=== PATIENT | male | born 1965 | race Caucasian/White ===

== ENCOUNTER 2021-07-04 18:26 | Inpatient (IN) ==
[2021-07-04 19:11] LABS: Basophils # (auto) 0.05 K/uL (0-0.2); Basophils % (auto) 0.7 %; Eosinophils # (auto) 0.26 K/uL (0-0.5); Eosinophils % (auto) 3.7 %; Hematocrit (blood only) 45.5 % (42-52); Hemoglobin 15.2 g/dL (14.0-18.0); Immature Granulocytes # (auto) 0.01 K/uL (0.00-0.02); Immature Granulocytes % (auto) 0.1 %; Lymphocytes # (auto) 2.06 K/uL (1.2-3.4); Lymphocytes % (auto) 29.6 %; Mean Corpuscular Hemoglobin 31.7 pg (25-34); Mean Corpuscular Hgb Conc 33.4 g/dL (32-36); Mean Platelet Volume 10.3 fL (7.4-10.4); Monocytes # (auto) 0.73 K/uL (0.11-0.59); Monocytes % (auto) 10.5 %; Neutrophils # (auto) 3.84 K/uL (1.4-6.5); Neutrophils % (auto) 55.4 %; Platelet Count 212 K/uL (130-400); RDW Coefficient of Variation 12.8 % (11.5-14.5); RDW Standard Deviation 44.4 fL (36.4-46.3); Red Blood Count 4.79 M/uL (4.7-6.1); White Blood Count 6.95 K/uL (4.8-10.8)
[2021-07-04] MEDS ORDERED: OPTIRAY 320 125ml IV ONE (19:25)
--- NOTE | 2021-07-04 19:25 | Emergency Department Note ---
History of Present Illness General Chief complaint: Eye Problems Stated complaint: TUNNEL VISION, LOSS OF PERIPHERAL Time Seen by Provider: 07/04/21 19:04 History of Present Illness Maximum Pain Intensity: 8 55-year-old male presents to the ED with a chief complaint of loss of vision on the lateral aspect of his left eye. The patient states that his symptoms started around 9 AM when he awoke and he was looking at a Keyboard and states that he could not see the one portion of the keyboard when looking at the other portion. He also felt a little lightheaded. While at work today, he states that his vision is felt a little off. He saw an music box mechanic this evening and had confrontational exam as well as a dilation exam. Nothing abnormal was seen on the anatomic exam however the confrontational exam showed a loss of his lateral vision in the left eye and medial vision in the right eye. The patient was sent here for further evaluation. The patient does report a headache in the right side of his head. Denies any other complaints. No trauma. No other focal complaints. Home Medications Medication Instructions Recorded Confirmed Type rosuvastatin 10 mg tablet (Crestor) 10 mg PO DAILY #90 tab 04/05/21 07/04/21 Rx fluticasone propionate 50 2 spray INTRANASAL DAILY 07/04/21 07/04/21 History mcg/actuation nasal spray,suspension ibuprofen 200 mg tablet 200 mg PO Q6H PRN 07/04/21 07/04/21 History opgdslyh-omk-wfhez acid 300 1 tab PO DAILY 07/04/21 07/04/21 History mcg-lycopene 600 mcg-lutein 300 mcg tablet (Centrum Silver Men) Allergies Allergy/AdvReac Type Severity Reaction Status Date / Time No Known Allergies Allergy Verified 07/04/21 19:56 Past Med/Surg History Medical History Herpes zoster Hyperlipidemia Surgical History S/P colonoscopic polypectomy Status post right knee surgery Family History Other Adopted Family history unknown Social History Smoking Status: Never smoker Second Hand Exposure: No; Hx Alcohol Use: Yes (3 times weekly ) Alcohol type: beer Hx Substance Use: No Preferred Language: Yoruba Communication Ability: Effective marital status: Current Living Situation: Spouse current occupational status: employed 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 [employer] Feels Safe at Home: Yes Childhood Exposure to Second-Hand Smoke: Yes Dental Care, Regularly: Yes Physical Activity Frequency: 3-4 Times per Week Seatbelt Use: always Sunscreen Use: Yes Review of Systems A total of 10 systems reviewed and were otherwise negative Physical Exam Vital Signs Vital Signs - 24 hr 07/04/21 18:41 07/04/21 19:12 Temperature 36.9 C Temperature Source Temporal Artery Scan Pulse Rate 78 Pulse Rate [Apical] 71 Pulse Rhythm Regular Pulse Rhythm [Apical] Regular Pulse Strength Normal Respiratory Rate 20 18 Respiratory Effort / Characteristics Non-Labored Spontaneous Non-Labored Respiratory Depth Normal Normal Respiratory Pattern Regular Blood Pressure 160/115 H Blood Pressure [Left Arm] 143/101 H Blood Pressure Mean 130 Blood Pressure Mean [Left Arm] 115 Blood Pressure Position Sitting Pulse Oximetry 97 99 Oxygen Delivery Method Room Air Room Air Sepsis Recent Fever Within 48 Hours No Sepsis New/Unexplained Change in Mental Status N/A Sepsis Action Taken by Nursing No Action Required CONSTITUTIONAL/VITAL SIGNS: Reviewed / noted above. GENERAL: Non-toxic in appearance. INTEGUMENTARY: Warm, dry, and [place]. HEAD: Normocephalic. EYES: without scleral icterus or trauma. ENT/OROPHARYNX: clear and moist. LYMPHADENOPATHY/NECK: Is supple without lymphadenopathy or meningismus. RESPIRATORY: Clear to auscultation bilaterally. No increased work of breathing. CARDIOVASCULAR: Regular rate and rhythm. GI/ABDOMEN: Soft and nontender. No organomegaly or pulsatile mass. EXTREMITIES: Warm and well perfused. BACK: No CVA tenderness. NEUROLOGICAL: Intact without focal deficits. No focal motor deficits. Confrontational exam did not reveal any obvious abnormalities on my exam. Normal speech. No facial droops. PSYCHIATRIC: normal affect. MUSCULOSKELETAL: Normally developed with good muscle tone. TRIAGE NURSING DOCUMENTATION REVIEWED. Course Administered Medications Discontinued Medications Aspirin (Aspirin Chew 324 Mg) 324 mg PO NOW STA Stop: 07/04/21 20:09 Last Admin: 07/04/21 20:17 Dose: 324 mg Documented by: [id number] Ioversol (Optiray 320 125ml) 117 ml IV ONCE ONE Stop: 07/04/21 19:26 Last Admin: 07/04/21 19:26 Dose: 117 ml Documented by: [id number] Medical Decision Making Differential Diagnosis Differential includes acute coronary syndrome, myocardial infarction, CVA, TIA, anemia, infection, pneumonia, UTI, pyelonephritis, poor nutrition, dehydration, electrolyte disturbance,hypoglycemia. Medical Records Attestation: I reviewed the patient's medical records. Home Medications Current Medication List: was personally reviewed by me Laboratory Data Attestation: I reviewed the patient's lab results. Result diagrams: 07/04/21 18:54 07/04/21 18:54 Lab Results 07/04/21 07/04/21 07/04/21 Range/Units 18:54 18:54 18:54 WBC 6.95 (4.8-10.8) K/uL RBC 4.79 (4.7-6.1) M/uL Hgb 15.2 (14.0-18.0) g/dL Hct 45.5 (42-52) % MCV 95.0 (80-100) fL MCH 31.7 (25-34) pg MCHC 33.4 (32-36) g/dL RDW Std Deviation 44.4 (36.4-46.3) fL RDW Coeff of [place] 12.8 (11.5-14.5) % Plt Count 212 (130-400) K/uL MPV 10.3 (7.4-10.4) fL Immature Gran % (Auto) 0.1 % Neut % (Auto) 55.4 % Lymph % (Auto) 29.6 % [place] % (Auto) 10.5 % Eos % (Auto) 3.7 % Baso % (Auto) 0.7 % Neut # (Auto) 3.84 (1.4-6.5) K/uL Lymph # (Auto) 2.06 (1.2-3.4) K/uL [place] # (Auto) 0.73 H (0.11-0.59) K/uL Eos # (Auto) 0.26 (0-0.5) K/uL Baso # (Auto) 0.05 (0-0.2) K/uL Immature Gran # (Auto) 0.01 (0.00-0.02) K/uL PT 10.3 (9.0-12.0) Seconds INR 1.0 (0.9-1.1) APTT 24.3 (21.0-31.0) Seconds PTT Ratio 0.9 Sodium 143 (136-145) mmol/L Potassium 3.6 (3.5-5.1) mmol/L Chloride 110 H (98-107) mmol/L Carbon Dioxide 26 (21-32) mmol/L Anion Gap 7.0 (3-11) BUN 17 (7-18) mg/dl Creatinine 1.06 (0.6-1.4) mg/dl Est Cr Clr Drug Dosing 92.6 ml/min Est GFR ( Amer) 91.8 ml/min Est GFR (Non-Af Amer) 79.2 ml/min BUN/Creatinine Ratio 15.6 (10-20) Glucose 100 H (70-99) mg/dl POC Glucose (70-99) mg/dl Calcium 9.0 (8.5-10.1) mg/dl Magnesium 2.5 H (1.8-2.4) mg/dl Total Bilirubin 0.6 (0.2-1) mg/dl AST 19 (15-37) U/L ALT 28 (12-78) U/L Alkaline Phosphatase 44 L (45-117) U/L Troponin I < 0.015 (0-0.045) ng/ml Total Protein 7.4 (6.4-8.2) gm/dl Albumin 4.1 (3.4-5.0) gm/dl Globulin 3.3 (2.5-4.0) gm/dl Albumin/Globulin Ratio 1.3 (0.9-2) 07/04/21 Range/Units 19:21 WBC (4.8-10.8) K/uL RBC (4.7-6.1) M/uL Hgb (14.0-18.0) g/dL Hct (42-52) % MCV (80-100) fL MCH (25-34) pg MCHC (32-36) g/dL RDW Std Deviation (36.4-46.3) fL RDW Coeff of Destini (11.5-14.5) % Plt Count (130-400) K/uL MPV (7.4-10.4) fL Immature Gran % (Auto) % Neut % (Auto) % Lymph % (Auto) % [place] % (Auto) % Eos % (Auto) % Baso % (Auto) % Neut # (Auto) (1.4-6.5) K/uL Lymph # (Auto) (1.2-3.4) K/uL [place] # (Auto) (0.11-0.59) K/uL Eos # (Auto) (0-0.5) K/uL Baso # (Auto) (0-0.2) K/uL Immature Gran # (Auto) (0.00-0.02) K/uL PT (9.0-12.0) Seconds INR (0.9-1.1) APTT (21.0-31.0) Seconds PTT Ratio Sodium (136-145) mmol/L Potassium (3.5-5.1) mmol/L Chloride (98-107) mmol/L Carbon Dioxide (21-32) mmol/L Anion Gap (3-11) BUN (7-18) mg/dl Creatinine (0.6-1.4) mg/dl Est Cr Clr Drug Dosing ml/min Est GFR ( Amer) ml/min Est GFR (Non-Af Amer) ml/min BUN/Creatinine Ratio (10-20) Glucose (70-99) mg/dl POC Glucose 99 (70-99) mg/dl Calcium (8.5-10.1) mg/dl Magnesium (1.8-2.4) mg/dl Total Bilirubin (0.2-1) mg/dl AST (15-37) U/L ALT (12-78) U/L Alkaline Phosphatase (45-117) U/L Troponin I (0-0.045) ng/ml Total Protein (6.4-8.2) gm/dl Albumin (3.4-5.0) gm/dl Globulin (2.5-4.0) gm/dl Albumin/Globulin Ratio (0.9-2) Imaging Data Radiologist's Impression: Head CT 07/04/21 18:59 CT OF THE HEAD WITHOUT CONTRAST CLINICAL HISTORY: Stroke Like Symptoms COMPARISON STUDY: No previous studies for comparison. TECHNIQUE: Helical axial images of the head were obtained without IV contrast. Automated exposure control was utilized for the study. A dose lowering technique was utilized adhering to the principles of ALARA. FINDINGS: No acute intracranial hemorrhage, midline shift or mass effect is present. The ventricular system is unremarkable. Basal cisterns are patent. There are no extra axial collections. Note is made of a 6.4 x 3.6 cm hypodense focus with loss of villa-white differentiation within the right occipital lobe. There are no significant calvarial abnormalities. IMPRESSION: 6.4 x 3.6 cm hypodense focus with loss of villa-white differentiation within the right occipital lobe consistent with an acute right WHEEL PRESS CLERK territory infarct. No significant mass effect. No hemorrhage. Findings discussed with Dr. Velasco at time of dictation. ACT 112: Negative or not required by law. Electronically signed by: Brenden Rice M.D. 07/04/2021 7:48 PM Head CTA 07/04/21 18:59 CTA ANGIOGRAPHY OF THE HEAD CLINICAL HISTORY: Stroke Like Symptoms COMPARISON STUDY: No previous studies for comparison. TECHNIQUE: Helical axial images of the head were obtained following uneventful intravenous administration of 117 cc of Optiray. Sagittal and coronal reconstructions were viewed as well as maximal intensity projections on an independent 3-D workstation. Automated exposure control was utilized for the study. A dose lowering technique was utilized adhering to the principles of ALARA. CT DOSE: 1173.73 mGy.cm FINDINGS: Please note that the head CT will be reported separately. Hypodensity within the right occipital lobe is better depicted on that exam. The bilateral M1, M2, A1 and A2 segments are patent. There is no intracranial aneurysm. No central vessel occlusion is noted. The basilar artery is patent. The left posterior cerebral artery is patent. The right posterior cerebral artery is 33not occluded however there is moderate asymmetric narrowing and irregularity of the mid to distal right posterior cerebral artery. IMPRESSION: 1. No central vessel occlusion. Asymmetric moderate narrowing and irregularity of the right posterior cerebral artery. 2. Acute infarct within the right WHEEL PRESS CLERK territory better depicted on noncontrast head CT which will be reported separately. ACT 112: Negative or not required by law. Electronically signed by: Brenden Rice M.D. 07/04/2021 8:01 PM Neck CTA 07/04/21 18:59 CT ANGIOGRAPHY OF THE NECK WITH CONTRAST CLINICAL HISTORY: Stroke Like Symptoms COMPARISON STUDY: No previous studies for comparison. Technique: CT angiography of the carotid and vertebral arteries was obtained using Optiray and 3D reconstruction on an independent workstation. NASCET criteria was utilized. Automated exposure control was utilized for the study. A dose lowering technique was utilized adhering to the principles of ALARA. Findings: Lung apices are clear. There is no cervical lymphadenopathy. No acute cervical spine fracture is noted. Multilevel degenerative changes within the cervical spine are present. The bilateral common carotid, cervical internal carotid and vertebral arteries are patent. There is no stenosis within these vessels. No significant plaque is noted. There is no dissection. No aneurysm within the neck is noted. CTA of the head will be reported separately. IMPRESSION: Unremarkable CTA of the neck. No stenosis. No dissection. ACT 112: Negative or not required by law. Electronically signed by: Brenden Rice M.D. 07/04/2021 7:57 PM ECG Data Attestation: I personally reviewed and interpreted this ECG as follows: Additional Comments: Twelve-lead EKG: Per my interpretation shows a sinus rhythm at a rate of 65. No ST elevation. No PVCs. Normal QTC. MDM Narrative Patient presents with left-sided hemianopsia. This was diagnosed at the music box mechanic office. He was concerned about a lesion in the right occipital lobe. Patient otherwise is in no distress. Vital signs stable. No focal deficits. On my gross confrontational exam, no gross abnormalities noted. The patient's blood work was unremarkable. EKG shows a sinus rhythm. CT scan of the brain shows findings suggesting a right WHEEL PRESS CLERK territory infarct causing a right occipital infarct. I did speak with [place] neurolog[facility], Dr. Holbrook, who recommended a full dose aspirin now followed by inpatient work-up here. No additional intervention was recommended. The patient will be seen by the hospitalist service. Impression & Plan Acute CVA (cerebrovascular accident) Discharge Plan Visit Data Chief Complaint: Eye Problems Stated Complaint: TUNNEL VISION, LOSS OF PERIPHERAL ED Provider: Luciano Velasco Discharge Problem: Acute CVA (cerebrovascular accident) Patient Disposition: Being Evaluated by Hospitalist Forms Stand Alone Forms: My [facility] Prescriptions Prescriptions: No Action rosuvastatin [Crestor] 10 mg tablet 10 mg PO DAILY Qty: 90 RF: 3 ibuprofen 200 mg Tablet 200 mg PO Q6H PRN (Reason: Pain) RF: 0 Centrum Silver Men 300-600-300 mcg Tablet 1 tab PO DAILY RF: 0 fluticasone propionate [Flonase] 50 mcg/actuation [place],Suspension 2 spray INTRANASAL DAILY RF: 0 Referrals Referrals: Dionicio Pizano MD [Primary Care Provider] -
[2021-07-04 19:28] LABS: Alanine Aminotransferase 28 U/L (12-78); Albumin Level 4.1 gm/dl (3.4-5.0); Aspartate Aminotransferase 19 U/L (15-37); BUN Creatinine Ratio 15.6 (10-20); Blood Urea Nitrogen 17 mg/dl (7-18); Carbon Dioxide 26 mmol/L (21-32); Chloride 110 mmol/L (98-107); Creatinine Clr Calc Pharmacy 92.6 ml/min; Est GFR (African American) 91.8 ml/min; Est GFR (Non-African American) 79.2 ml/min; Glucose 100 mg/dl (70-99); Magnesium 2.5 mg/dl (1.8-2.4); Potassium 3.6 mmol/L (3.5-5.1); Sodium 143 mmol/L (136-145)
[2021-07-04 19:33] LABS: Albumin Globulin Ratio 1.3 (0.9-2); Alkaline Phosphatase 44 U/L (45-117); Bilirubin,Total 0.6 mg/dl (0.2-1); Globulin 3.3 gm/dl (2.5-4.0); Total Protein 7.4 gm/dl (6.4-8.2); Troponin I < 0.015 ng/ml (0-0.045)
[2021-07-04 19:44] LABS: Partial Thromboplastin Ratio 0.9; Partial Thromboplastin Time 24.3 Seconds (21.0-31.0); Prothrombin Time 10.3 Seconds (9.0-12.0)
--- NOTE | 2021-07-04 19:50 | CT Scan Report ---
CT OF THE HEAD WITHOUT CONTRAST CLINICAL HISTORY: Stroke Like Symptoms COMPARISON STUDY: No previous studies for comparison. TECHNIQUE: Helical axial images of the head were obtained without IV contrast. Automated exposure con trol was utilized for the study. A dose lowering technique was utilized adhering to the principles o f ALARA. FINDINGS: No acute intracranial hemorrhage, midline shift or mass effect is present. The ventricular system is unremarkable. Basal cisterns are patent. There are no extra axial collections. Note is made of a 6.4 x 3.6 cm hypodense focus with loss of villa-white differentiation within the right occipital lobe. There are no significant calvarial abnormalities. IMPRESSION: 6.4 x 3.6 cm hypodense focus with loss of villa-white differentiation within the right oc cipital lobe consistent with an acute right MANAGER FIELD territory infarct. No significant mass effect. No hem orrhage. Findings discussed with Dr. Velasco at time of dictation. ACT 112: Negative or not required by law. Electronically signed by: Brenden Rice M.D. 07/04/2021 7:48 PM
--- NOTE | 2021-07-04 19:58 | CT Scan Report ---
CT ANGIOGRAPHY OF THE NECK WITH CONTRAST CLINICAL HISTORY: Stroke Like Symptoms COMPARISON STUDY: No previous studies for comparison. Technique: CT angiography of the carotid and vertebral arteries was obtained using Optiray and 3D rec onstruction on an independent workstation. NASCET criteria was utilized. Automated exposure control was utilized for the study. A dose lowering technique was utilized adhering to the principles of ALA RA. Findings: Lung apices are clear. There is no cervical lymphadenopathy. No acute cervical spine fractu re is noted. Multilevel degenerative changes within the cervical spine are present. The bilateral com mon carotid, cervical internal carotid and vertebral arteries are patent. There is no stenosis within these vessels. No significant plaque is noted. There is no dissection. No aneurysm within the neck i s noted. CTA of the head will be reported separately. IMPRESSION: Unremarkable CTA of the neck. No stenosis. No dissection. ACT 112: Negative or not required by law. Electronically signed by: Brenden Rice M.D. 07/04/2021 7:57 PM
--- NOTE | 2021-07-04 20:03 | CT Scan Report ---
CTA ANGIOGRAPHY OF THE HEAD CLINICAL HISTORY: Stroke Like Symptoms COMPARISON STUDY: No previous studies for comparison. TECHNIQUE: Helical axial images of the head were obtained following uneventful intravenous administr ation of 117 cc of Optiray. Sagittal and coronal reconstructions were viewed as well as maximal inten sity projections on an independent 3-D workstation. Automated exposure control was utilized for the study. A dose lowering technique was utilized adhering to the principles of ALARA. CT DOSE: 1173.73 mGy.cm FINDINGS: Please note that the head CT will be reported separately. Hypodensity within the right occi pital lobe is better depicted on that exam. The bilateral M1, M2, A1 and A2 segments are patent. Ther e is no intracranial aneurysm. No central vessel occlusion is noted. The basilar artery is patent. Th e left posterior cerebral artery is patent. The right posterior cerebral artery is 33not occluded how ever there is moderate asymmetric narrowing and irregularity of the mid to distal right posterior cer ebral artery. IMPRESSION: 1. No central vessel occlusion. Asymmetric moderate narrowing and irregularity of the right posterior cerebral artery. 2. Acute infarct within the right DIETARY COOK territory better depicted on noncontrast head CT which will be reported separately. ACT 112: Negative or not required by law. Electronically signed by: Brenden Rice M.D. 07/04/2021 8:01 PM
[2021-07-04] MEDS ORDERED: ASPIRIN CHEW 324 MG PO STA (20:08)
--- NOTE | 2021-07-04 21:42 | History & Physical Report ---
Date of Service July 04, 2021 Assessment & Plan (1) Acute CVA (cerebrovascular accident): Plan: Acute right INSIDE SALES PROFESSIONAL stroke- no history of trauma, no dissection seen on CTA - admit to medical telemetry rule out dysrhythmia - ECHO evaluate for PFO - Neurology consult- appreciate recommendations/assistance - Lipid panel pending in the morning- likely increase rosuvastatin to 20mg - Continue ASA 81 mg daily - Neuro checks q4 hours - any changes repeat non-con head CT - MRI in morning (2) Hyperlipidemia: Plan: As per HPI and above - continue rosuvastatin (3) Tubular adenoma: Plan: Colonoscopy up to date History of Present Illness Chief Complaint: Visual deficit Primary Care Provider: Dionicio Pizano MD 55 YOM with past medical history of: HLD, tubular adenoma. Patient comes to the EMD today for evaluation of partial vision loss. The patient awoke this morning at ~ 0700 feeling normal, around 0900 the patient went to log on his computer for his ; this is when he noticed that his vision was off and couldn't see some of the keys on the left side, this was also noticed with a headache behind his right eye. He thought that this might have possibly been a migraine so he laid down for a bit. 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 After not having any improvement or worsening of his visual field cut he went to see his eye doctor, where he had his eyes dilated and confrontational testing performed. It was noted that he was having left hemianopsia and was referred to the EMD. In the EMD the patient did have an acute stroke work up to include head and neck CTA and head CT. His CTA of the head revealed an acute infarct within the right INSIDE SALES [employer]ESSIONAL territory and his CT scan of his head revealed a 6.4x3.6 cm hypodense focus within the right occipital lobe. [facility] did telestroke with [facility] that had no further recommendations or treatments. Patient did receive aspirin. Hospitalist team was notified for consult. Patient remains with left hemianopsia on the temporal side, will admit for continued monitoring of neurological status and further evaluations of risk and origin of CVA. Patient is active with activity playing racquetball and hiking, he completed a 5 mile walk yesterday without any symptoms or problems. Follows regularly with his PCP and colonoscopy is up to date. Was started on statin therapy in 2019. he was to have a follow up with his PCP this week. Patient received his COVID vaccine Allergies Allergy/AdvReac Type Severity Reaction Status Date / Time No Known Allergies Allergy Verified 07/04/21 19:56 Home Medications Medication Instructions Recorded Confirmed Type rosuvastatin 10 mg tablet (Crestor) 10 mg PO DAILY #90 tab 04/05/21 07/04/21 Rx fluticasone propionate 50 2 spray INTRANASAL DAILY 07/04/21 07/04/21 History mcg/actuation nasal spray,suspension ibuprofen 200 mg tablet 200 mg PO Q6H PRN 07/04/21 07/04/21 History nhwhquvb-nml-ypsdr acid 300 1 tab PO DAILY 07/04/21 07/04/21 History mcg-lycopene 600 mcg-lutein 300 mcg tablet (Centrum Silver Men) Past Med/Surg History Medical History Herpes zoster Hyperlipidemia Surgical History S/P colonoscopic polypectomy Status post right knee surgery Family History Other Adopted Family history unknown Social History Smoking Status: Never smoker Second Hand Exposure: No; Hx Alcohol Use: Yes Alcohol type: beer Hx Substance Use: No Preferred Language: Italian Communication Ability: Effective Beliefs That Will Affect Care: None marital status: Current Living Situation: Spouse current occupational status: employed 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 [employer] Feels Safe at Home: Yes Safety Concerns: Feels Safe At This Time Childhood Exposure to Second-Hand Smoke: Yes Dental Care, Regularly: Yes Physical Activity Frequency: 3-4 Times per Week Seatbelt Use: always Sunscreen Use: Yes Assistive Devices: Glasses Review of Systems Review of Systems: REVIEW OF SYSTEMS: Constitutional: No fever, sweats or chills Eyes: (+) vision changes as per HPI, No diplopia, ENT: normal hearing, no trouble swallowing Respiratory: No cough, sputum, dyspnea at rest or on exertion Cardiovascular: No chest pain, tightness or palpitations Abdomen: No pain, nausea, vomiting, diarrhea or constipation Musculoskeletal: No joint pain, calf pain, swelling Neurologic: No weakness, numbness/tingling, or balance problems Psychiatric: No anxiety or depression Skin: No rash or itch Physical Exam Physical Exam: PHYSICAL EXAM: General: awake, alert, no apparent distress Head: Normocephalic, atraumatic ENT: eyes dilated following optometry visit, EOMI, loss of temporal left vision with Neuro: AAO x 3, speech clear and appropriate, strength intact bilaterally 5/5, sensation intact and equal all extremities and dermatomes, no pronator drift Chest: equal rise and fall of the chest, no accessory muscle use, no heaves or thrills, Clear to auscultation, on room air, Cardiac: Regular rate and rhythm, telemetry reviewed, skin warm dry, cap refill <3 seconds, peripheral pulses +2 no JVD, no murmur, no JVD, no edema GI: NABS x 4 quadrants, soft, nontender to palpation, no rebound, guarding or tenderness : Spontaneously voiding, no pain, no CVA tenderness, Extremities: Normal inspection, no peripheral edema or erythema, calfs nontender to palpation Psych: Normal mood and affect Skin: no rash or erythema Results & Data Results & Data ([facility]) Vital Signs (Past 12 Hours) Vital Signs Temp Pulse Pulse Resp BP BP Pulse Ox 07/04/21 19:12 71 18 143/101 H 99 07/04/21 18:41 36.9 C 78 20 160/115 H 97 Laboratory Results Abnormal Labs 07/04/21 07/04/21 18:54 18:54 [place] # (Auto) 0.73 H Chloride 110 H Glucose 100 H Magnesium 2.5 H Alkaline Phosphatase 44 L Diagnostic Findings Head CT 07/04/21 18:59 CT OF THE HEAD WITHOUT CONTRAST CLINICAL HISTORY: Stroke Like Symptoms COMPARISON STUDY: No previous studies for comparison. TECHNIQUE: Helical axial images of the head were obtained without IV contrast. Automated exposure control was utilized for the study. A dose lowering technique was utilized adhering to the principles of ALARA. FINDINGS: No acute intracranial hemorrhage, midline shift or mass effect is present. The ventricular system is unremarkable. Basal cisterns are patent. There are no extra axial collections. Note is made of a 6.4 x 3.6 cm hypodense f ocus with loss of villa-white differentiation within the right occipital lobe. There are no significant calvarial abnormalities. IMPRESSION: 6.4 x 3.6 cm hypodense focus with loss of villa-white diff erentiation within the right occipital lobe consistent with an acute right INSIDE SALES [employer]ESSIONAL territory infarct. No significant mass effect. No hemorrhage. Findings discussed with Dr. Velasco at time of dictation. ACT 112: Negative or not required by law. Electronically signed by: Brenden Rice M.D. 07/04/2021 7:48 PM Head CTA 07/04/21 18:59 CTA ANGIOGRAPHY OF THE HEAD CLINICAL HISTORY: Stroke Like Symptoms COMPARISON STUDY: No previous studies for comparison. TECHNIQUE: Helical axial images of the head were obtained following uneventful intravenous administration of 117 cc of Optiray. Sagittal and coronal reconstructions were viewed as well as maximal intensity projections on an independent 3-D workstation. Automated exposure control was utilized for the study. A dose lowering technique was utilized adhering to the principles of ALARA. CT DOSE: 1173.73 mGy.cm FINDINGS: Please note that the head CT will be reported separately. Hypodensity within the right occipital lobe is better depicted on that exam. The bilateral M1, M2, A1 and A2 segments are patent. There is no intracranial aneurysm. No central vessel occlusion is noted. The basilar artery is patent. The left posterior cerebral artery is patent. The right posterior cerebral artery is 33not occluded however there is moderate asymmetric narrowing and irregularity of the mid to distal right posterior cerebral artery. IMPRESSION: 1. No central vessel occlusion. Asymmetric moderate narrowing and irregularity of the right posterior cerebral artery. 2. Acute infarct within the right INSIDE SALES [employer]ESSIONAL territory better depicted on noncontrast head CT which will be reported separately. ACT 112: Negative or not required by law. Electronically signed by: Brenden Rice M.D. 07/04/2021 8:01 PM Neck CTA 07/04/21 18:59 CT ANGIOGRAPHY OF THE NECK WITH CONTRAST CLINICAL HISTORY: Stroke Like Symptoms COMPARISON STUDY: No previous studies for comparison. Technique: CT angiography of the carotid and vertebral arteries was obtained using Optiray and 3D reconstruction on an independent workstation. NASCET criteria was utilized. Automated exposure control was utilized for the study. A dose lowering technique was utilized adhering to the principles of ALARA. Findings: Lung apices are clear. There is no cervical lymphadenopathy. No acute cervical spine fracture is noted. Multilevel degenerative changes within the cervical spine are present. The bilateral common carotid, cervical internal carotid and vertebral arteries are patent. There is no stenosis within these vessels. No significant plaque is noted. There is no dissection. No aneurysm within the neck is noted. CTA of the head will be reported separately. IMPRESSION: Unremarkable CTA of the neck. No stenosis. No dissection. ACT 112: Negative or not required by law. Electronically signed by: Brenden iRce M.D. 07/04/2021 7:57 PM Medications Administered Discontinued Medications Aspirin (Aspirin Chew 324 Mg) 324 mg PO NOW STA Stop: 07/04/21 20:09 Last Admin: 07/04/21 20:17 Dose: 324 mg Documented by: [id number] Ioversol (Optiray 320 125ml) 117 ml IV ONCE ONE Stop: 07/04/21 19:26 Last Admin: 07/04/21 19:26 Dose: 117 ml Documented by: [id number] Additional Comments: Normal sinus rhythm Normal ECG No previous ECGs available Code Status & VTE Plan Code Status CODE: FULL VTE: SCDs, asa, ambulation VTE Prophylaxis Plan VTE Prophylaxis will be ordered: Yes Supervising Physician Co-Signing Physician Notes Patient seen and examined, chart reviewed, case discussed with ANTONIO Nieves and I agree with his assessment and plan as documented above. Briefly, patient is a 55-year-old male with history of hyperlipidemia presenting with visual field deficit noted this morning. Patient had formal visual field evaluation performed today and noted to have a left hemianopsia therefore was referred to the emergency room. Work-up performed in the ER revealed an acute infarct in the right INS[employer]ES [employer]ESSIONAL territory. On exam patient is afebrile, hemodynamically stable, no acute distress Skinwarm, dry, intact, no rash or lesions HEENTno cephalic/atraumatic, pupils equal and reactive to light, extraocular muscles intact, moist mucous membranes, neck supple, no JVD Heart+ S1/S2, regular, no murmur/rubs/gallops Lungsequal air entry bilaterally, no rales/rhonchi/wheezes Abdomenpositive bowel sounds, soft, nontender/nondistended no guarding Extremitieswarm, well-perfused, no clubbing/cyanosis/edema Neuropatient awake alert and oriented, speech clear and appropriate, no facial droop, sensation to light touch intact, muscle strength 5 out of 5 bilaterally, loss of temporal visual field left eye Labs and images reviewed Covid negative CT head with 6.4 x 3.6 cm hypodense focus with loss of graywhite differenti ation within the right occipital lobe consistent with an acute right INSIDE SALES [employer]ESSIONAL territory infarct. No significant mass-effect. No hemorrhage. Assessment/plan: 55-year-old male presenting with acute occipital ischemic stroke resulting in left hemianopsia. Risk factors include hyperlipidemia. Admit to medical with telemetry Neurochecks MH stroke scale daily Dysphagia screening as needed Check MRI brain Check echo with bubble Check lipid panel and hemoglobin A1c Neurology consultation appreciated Initiate aspirin 81 mg p.o. daily and increase Crestor to 20 mg daily/high-dose Remainder of plan as above PG Care Time/CCT Total # of Minutes Spent Total Time Spent with Patient: Total time spent is greater than 50% in coordination of care (as documented) at patient's floor/unit and/or counseling patient: Coding Level of Care Code 32233 Initial Inpt Care Lvl 2 Diagnoses Acute CVA (cerebrovascular accident) I63.9 Hyperlipidemia E78.5 Tubular adenoma D36.9
[2021-07-05] MEDS ORDERED: PHARMACIST DISCHARGE MED REC CONSULT PRN (00:23)
[2021-07-05] MEDS ORDERED: POLYETHYLENE (MIRALAX) 17 GM PACK PO PRN (00:23)
[2021-07-05] MEDS ORDERED: ONDANSETRON INJ 2 MG/ML 2 ML VIAL IV PRN (00:23)
[2021-07-05] MEDS: ACETAMINOPHEN 325 MG TAB PO PRN ×3 (07:21→23:03)
[2021-07-05 07:44] LABS: Basophils # (auto) 0.04 K/uL (0-0.2); Basophils % (auto) 0.5 %; Eosinophils # (auto) 0.26 K/uL (0-0.5); Eosinophils % (auto) 3.5 %; Hematocrit (blood only) 41.9 % (42-52); Immature Granulocytes # (auto) 0.02 K/uL (0.00-0.02); Immature Granulocytes % (auto) 0.3 %; Lymphocytes # (auto) 1.26 K/uL (1.2-3.4); Lymphocytes % (auto) 16.7 %; Mean Corpuscular Hemoglobin 31.6 pg (25-34); Mean Corpuscular Hgb Conc 33.4 g/dL (32-36); Mean Corpuscular Volume 94.6 fL (80-100); Mean Platelet Volume 10.3 fL (7.4-10.4); Monocytes # (auto) 0.72 K/uL (0.11-0.59); Monocytes % (auto) 9.6 %; Neutrophils # (auto) 5.23 K/uL (1.4-6.5); Neutrophils % (auto) 69.4 %; Platelet Count 179 K/uL (130-400); RDW Coefficient of Variation 12.9 % (11.5-14.5); RDW Standard Deviation 44.9 fL (36.4-46.3); Red Blood Count 4.43 M/uL (4.7-6.1); White Blood Count 7.53 K/uL (4.8-10.8)
--- NOTE | 2021-07-05 07:49 | Hospitalist Progress Note ---
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 No significant mass effect. No hemorrhage - ECHO does confirm PFO - Neurology consult, Acute right posterior cerebral artery stroke presenting with a left homonymous hemianopsia which appears to be significantly improved recommends reimaging per radiology and continue antiplatelet therapy with cardiology follow-up including event monitor -Continue current dose of Crestor - Continue ASA 81 mg daily, - - any changes repeat non-con head CT - MRI (2) Hyperlipidemia: Plan: As per HPI and above - continue rosuvastatin (3) Tubular adenoma: Plan: Colonoscopy up to date Admission and Anticipated Discharge Date Admission Date: July 04, 2021 Subjective Patient has had improvement of his hemianopsia to be admitted to the hospital. He was informed of his PFO. He was also informed of perhaps slight petechial hemorrhage and repeat imaging requested in 24 hours. Patient has no other symptoms or complaints right now his vision has improved Review of Systems Review of Systems: Mild distress and fatigue no headache, left upward outward visual field loss no speech or swallowing issues no chest pain, pressure or palpitations no shortness of breath, cough or wheezes no abdominal pain, nausea or vomiting, diarrhea or constipation no dysuria, hematuria or frequency no focal joint pain or swelling no back pain, CVA tenderness or radicular pain no bruising, bleeding or rashes no focal signs of weakness or numbness or altered sensation no complaints of anxiety or depression.. Physical Exam Physical Exam: Mild distress and fatigue no headache, confrontational visual examination was done by neurology showing left homonymous hemianopsia no speech or swallowing issues no chest pain, pressure or palpitations no shortness of breath, cough or wheezes no abdominal pain, nausea or vomiting, diarrhea or constipation no dysuria, hematuria or frequency no focal joint pain or swelling no back pain, CVA tenderness or radicular pain no bruising, bleeding or rashes no focal signs of weakness or numbness or altered sensation no complaints of anxiety or depression.. Results & Data Results & Data ([facility]) Vital Signs (Past 12 Hours) Vital Signs Temp Pulse Pulse Pulse Resp BP BP 0825/21 07:00 62 07/05/21 03:17 98.1 F 64 18 07/05/21 01:23 64 07/05/21 01:03 97.9 F 60 16 150/92 H 07/04/21 23:24 62 18 133/87 07/04/21 21:31 72 18 143/89 H BP Pulse Ox 07/05/21 07:00 07/05/21 03:17 129/75 96 07/05/21 01:23 07/05/21 01:03 97 07/04/21 23:24 98 07/04/21 21:31 98 PG Care Time/CCT Total # of Minutes Spent Total Time Spent with Patient: Total time spent is greater than 50% in coordination of care (as documented) at patient's floor/unit and/or counseling patient: Coding Level of Care Code 99150 Subseq Hosp Care Lvl 2 Diagnoses Acute CVA (cerebrovascular accident) I63.9 Hyperlipidemia E78.5 Tubular adenoma D36.9
[2021-07-05 08:11] LABS: Calcium 8.7 mg/dl (8.5-10.1); Creatinine Clr Calc Pharmacy 116.9 ml/min; Est GFR (Non-African American) 99.3 ml/min; Potassium 3.6 mmol/L (3.5-5.1)
[2021-07-05] MEDS: ROSUVASTATIN CALCIUM 10 MG TAB PO SCH (08:30)
[2021-07-05] MEDS: ASPIRIN 81 MG ECTAB PO SCH (08:30)
[2021-07-05] MEDS: FLUTICASONE PROPIONATE NA SPR 16 GM BTL NAE SCH (08:32)
--- NOTE | 2021-07-05 09:16 | Magnetic Resonance Report ---
Brain MRI WITHOUT CONTRAST HISTORY: Evaluate right occipital lobe infarct. TECHNIQUE: Multiplanar multisequence MRI of the brain was performed without the use of contrast. COMPARISON STUDY: Head CT 07/04/2021. FINDINGS: There is 7.0 x 3.4 cm area of restricted diffusion involving the majority the right occipit al lobe consistent with an acute right [employer]O [employer]SMISSION [employer]IST territory infarct. There is associated cytotoxic edema at the area of infarct without significant mass effect or midline shift. The ventricles and sulci are wi thin normal limits. There is no mass or hematoma. The major vascular flow-voids at the skull base are well-maintained. Paranasal sinuses and mastoid air cells are clear. The orbits are unremarkable. A f ew small serpiginous areas of susceptibility artifact in the gradient echo sequences within the area of infarct could represent petechial hemorrhage. IMPRESSION: 1. An acute right [employer] TRANSMISSION [employer]IST territory infarct as described above. 2. Suspect small areas of petechial hemorrhage at the right occipital lobe infarct. Follow-up head CT in 12 to 24 hours is recommended to ensure stability. ACT 112: Negative or not required by law. Electronically signed by: Stefano Duff M.D. 07/05/2021 9:15 AM
[2021-07-05 10:26] LABS: Estimated Average Glucose 105 mg/dl; Hemoglobin A1C 5.3 % (4.5-5.6)
--- NOTE | 2021-07-05 11:18 | XCELERA ---
[id number]
--- NOTE | 2021-07-05 11:30 | Neurology Consultation ---
Date of Consultation July 05, 2021 Assessment & Plan (1) Acute right CRACKER DOUGH MIXER stroke: Acute right posterior cerebral artery stroke presenting with a left homonymous hemianopsia which appears to be significantly improved this morning. Recently completed echocardiogram does reveal a PFO which is a likely risk factor for stroke in this patient. He also has a history of hyperlipidemia but otherwise does not have other stroke or cardiovascular risk factors. No history of prior stroke or TIA. I do agree with starting daily low-dose aspirin for secondary stroke risk reduction in this patient. He should continue with his current dosage of Crestor. There may be some subtle petechial hemorrhage within the identified right occipital stroke and he should have a follow-up CT of the head completed in 12 to 24 hours as recommended by radiology. This finding is not a contraindication to antiplatelet therapy at this time, however. Patient will also need additional follow-up with his senior principal process engineer, Dr. Kaur, for an up-to-date visual field assessment. Again, his visual field this morning appears to be significantly improved with simple bedside confrontation testing. Follow-up with hypercoagulable panel. Would recommend obtaining 30-day mobile cardiac outpatient telemetry as well. Consider obtaining a cardiology consultation (could be done as an outpatient) to discuss whether or not PFO closure may be an appropriate option for him going forward. History of Present Illness Reason for Consultation: Acute CRACKER DOUGH MIXER stroke Requesting Physician: ANTONIO Merida Attending Physician: John Noe MD History of Present Illness The patient is a 55-year-old male with a chief complaint of vision loss. He complains of vision loss off to the left that began yesterday morning probably at around 9 AM. He noticed some difficulty looking at his watch and keyboard at that time. He later went to work and noted that his symptoms continued, he then saw Dr. Kaur, his eye doctor later that evening who did find evidence of a hemianopsia. He was referred to the emergency department for further evaluation of suspected stroke or other lesion within the right occipital lobe. Patient was outside of the window for administration of TPA. A CT of the head and CT angio gram of the head and neck were completed and revealed evidence of an evolving acute right CRACKER DOUGH MIXER territory stroke measuring 6.4 x 3.6 cm, without associated hemorrhage or mass-effect as well as moderate narrowing and irregularity of the right posterior cerebral artery. No other vascular abnormalities, no dissection. A follow-up brain MRI has been completed which reveals an acute right CRACKER DOUGH MIXER territory infarct with associated cytotoxic edema without significant mass- effect. Possible petechial hemorrhage identified as well. Follow-up CT of the head in 12 to 24 hours was recommended. I did review the images as well as the radiologist interpretation of these tests and agree. Past medical history notable for dyslipidemia for which the patient recently started Crestor. Otherwise, patient is physically healthy, no known history of diabetes or hypertension. Denies a prior history of DVT or thromboembolic disease. No significant cardiac history. No prior history of stroke or TIA. No history of migraine. 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 He does not smoke or abuse recreational drugs. He participates in regular physical activity. Family history unknown, patient adopted. Patient did receive the [place] COVID-19 vaccination this past February. Allergies Allergy/AdvReac Type Severity Reaction Status Date / Time No Known Allergies Allergy Verified 07/04/21 19:56 Home Medications Medication Instructions Recorded Confirmed Type rosuvastatin 10 mg tablet (Crestor) 10 mg PO DAILY #90 tab 04/05/21 07/04/21 Rx fluticasone propionate 50 2 spray INTRANASAL DAILY 07/04/21 07/04/21 History mcg/actuation nasal spray,suspension ibuprofen 200 mg tablet 200 mg PO Q6H PRN 07/04/21 07/04/21 History jphfmlgd-xjw-ukaej acid 300 1 tab PO DAILY 07/04/21 07/04/21 History mcg-lycopene 600 mcg-lutein 300 mcg tablet (Centrum Silver Men) Patient History Medical History Herpes zoster Hyperlipidemia Surgical History S/P colonoscopic polypectomy Status post right knee surgery Family History Other Adopted Family history unknown Social History Smoking Status: Never smoker Second Hand Exposure: No; Hx Alcohol Use: Yes Alcohol type: beer Hx Substance Use: No Preferred Language: [place] Communication Ability: Effective Beliefs That Will Affect Care: None marital status: Current Living Situation: Spouse current occupational status: employed current occupation: art history 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 at [employer] How many Children do You have: 2 Feels Safe at Home: Yes Safety Concerns: Feels Safe At This Time Childhood Exposure to Second-Hand Smoke: Yes Dental Care, Regularly: Yes Physical Activity Frequency: 3-4 Times per Week Seatbelt Use: always Sunscreen Use: Yes Assistive Devices: Glasses Review of Systems Constitutional: no fever and no chills Eyes: + blind spots; no diplopia and no eye pain Ear, Nose, Mouth, Throat: no ear pain and no hearing loss Respiratory: no cough and no dyspnea Cardiovascular: no chest pain and no palpitations Gastrointestinal: no constipation and no diarrhea/loose stools Genitourinary: no urinary incontinence or no urinary urgency Musculoskeletal: no muscle weakness and no muscle atrophy Integumentary: no rash and no lesions Neurologic: as per Subjective / HPI and + headache(s); no gait abnormality, no localized weakness, no loss of sensation, no paresthesia, no tremor(s), no syncope and no memory loss Psychiatric: no behavioral changes, no depression, no abnormal sleep pattern and no anxiety Hematologic / Lymphatic: no easy bruising and no lymphadenopathy Exam (Neuro) Constitutional: well developed and well nourished; no acute distress Eyes: normal visual escamilla by confrontation, PERRL, normal accommodation and EOM intact bilaterally; no fundoscopic abnormality, no nystagmus and no papilledema Cardiovascular: Vessels: normal carotid upstroke; no carotid bruit Neurologic: Oriented to:: Person, Place and Time Memory: Short Term Intact and Remote Intact Attention: Span Intact and Concentration Intact Language: Naming Objects and Repeating Phrases Speech Fluency: negative Dysarthria Speech Aphasia: negative Aphasia Fund of Knowledge: Current Events, Past History and Vocabulary Cranial Nerves: Normal II (Visual escamilla full to confrontation, visual acuity normal), III, IV, (Pupils equal round reactive to light and accommodation, eye movements normal), V (Facial sensation intact), VII (There is no facial droop or weakness), VIII (Hearing intact), IX, X (Palate elevates to midline), XI (Shoulder shrug intact) and XII (Tongue protrudes to midline) Motor Strength: Normal Lower Extremities and Normal Upper Extremities; negative Pronator Drift Motor Tone: Normal Lower Extremities and Normal Upper Extremities Muscle Bulk/Involuntary Movements: No Involuntary Movements; negative Muscle Atrophy Sensation: Light Touch Intact, Pain/Temperature Intact, Vibration Intact and Proprioception Intact Coordination: Normal; negative Limited Balance, Dysdiadochokinesia, Finger-Nose Abnormal or Heel-Miranda Abnormal Deep Tendon Reflexes: Rt Triceps: 2+, Lt Triceps: 2+, Rt Biceps: 2+, Lt Biceps: 2+, Rt Brachioradialis: 2+, Lt Brachioradialis: 2+, Rt Patellar: 2+, Lt Patellar: 2+, Rt Ankle: 2+ and Lt Ankle: 2+ Special Tests: negative Babinski Present Gait: Normal Station and Gait Results & Data ([facility]) Vital Signs (Past 12 Hours) Vital Signs Temp Pulse Pulse Pulse Resp BP BP 07/05/21 07:50 36.8 C 70 17 07/05/21 07:00 62 07/05/21 03:17 36.7 C 64 18 07/05/21 01:23 64 07/05/21 01:03 36.6 C 60 16 150/92 H 07/04/21 23:24 62 18 133/87 BP Pulse Ox 07/05/21 07:50 105/63 98 07/05/21 07:00 07/05/21 03:17 129/75 96 07/05/21 01:23 07/05/21 01:03 97 07/04/21 23:24 98 Laboratory Results WBC 7.53, hemoglobin 14.0, hematocrit 41.9, platelet count 179, sodium 142, potassium 3.6, BUN 14, creatinine 0.84, glucose 98, hemoglobin A1c 5.3, magnesium 2.0, troponin less than 0.015, triglycerides 102, cholesterol 143, LDL 80, VLDL 20, HDL [address] of the head, CT angiography of the head and neck, and brain MRI are as described in history of present illness. I did review the images as well as the radiologist's interpretation of these tests. Transthoracic echocardiogram reveals normal left ventricular systolic function and a patent cai ovale with evidence of interatrial shunting with injection of contrast. Electrocardiogram reveals a normal sinus rhythm, 65 bpm. Coding Level of Care Code 65511 Inpt Consult Level 5 Diagnoses Acute right CRACKER DOUGH MIXER stroke I63.531
[2021-07-06] MEDS: ASPIRIN 81 MG ECTAB PO SCH (08:01)
[2021-07-06] MEDS: FLUTICASONE PROPIONATE NA SPR 16 GM BTL NAE SCH (08:02)
[2021-07-06] MEDS: ACETAMINOPHEN 325 MG TAB PO PRN ×2 (08:02→13:13)
[2021-07-06] MEDS: ROSUVASTATIN CALCIUM 10 MG TAB PO SCH (08:02)
[2021-07-06 08:12] LABS: Basophils # (auto) 0.03 K/uL (0-0.2); Basophils % (auto) 0.5 %; Eosinophils # (auto) 0.22 K/uL (0-0.5); Eosinophils % (auto) 3.5 %; Hemoglobin 14.2 g/dL (14.0-18.0); Immature Granulocytes # (auto) 0.01 K/uL (0.00-0.02); Immature Granulocytes % (auto) 0.2 %; Lymphocytes % (auto) 23.7 %; Mean Corpuscular Hemoglobin 31.8 pg (25-34); Mean Corpuscular Volume 96.4 fL (80-100); Mean Platelet Volume 10.2 fL (7.4-10.4); Monocytes # (auto) 0.69 K/uL (0.11-0.59); Monocytes % (auto) 10.9 %; Neutrophils # (auto) 3.89 K/uL (1.4-6.5); Neutrophils % (auto) 61.2 %; Platelet Count 183 K/uL (130-400); RDW Coefficient of Variation 12.7 % (11.5-14.5); RDW Standard Deviation 44.8 fL (36.4-46.3); Red Blood Count 4.46 M/uL (4.7-6.1); White Blood Count 6.34 K/uL (4.8-10.8)
[2021-07-06 08:40] LABS: BUN Creatinine Ratio 13.7 (10-20); Calcium 8.8 mg/dl (8.5-10.1); Creatinine Clr Calc Pharmacy 98.2 ml/min; Est GFR (African American) 98.5 ml/min; Est GFR (Non-African American) 84.9 ml/min; Magnesium 2.2 mg/dl (1.8-2.4); Potassium 3.7 mmol/L (3.5-5.1)
--- NOTE | 2021-07-06 11:35 | CT Scan Report ---
HEAD CT NONCONTRAST CT DOSE: 537.48 mGy.cm HISTORY: Right occipital lobe infarct. eval cva for hemorrhagic conversion TECHNIQUE: Multiaxial CT images of the head were performed without the use of intravenous contrast. A utomated exposure control was utilized for this study. A dose lowering technique was utilized adheri ng to the principles of ALARA. Comparison: Head CT 07/04/2021. Findings: The paranasal sinuses and mastoid air cells are clear. The calvarium and skull base are int act. The ventricles are normal in size. There is no mass or midline shift. A 6.4 cm hypodense area wi thin the right occipital lobe consistent with the patient's known acute REQUIREMENTS ENGINEER territory infarct. There is also a smaller infarct within the right posterior parietal lobe on image 17. This measures approxi mately 2.1 cm. There are subtle small foci of increased density within the right occipital lobe infar ct which could represent areas of petechial hemorrhage as seen on the recent MRI. Therefore, continue d [address] follow-up is recommended to ensure stability. Impression: There are subtle small foci of increased density within the right occipital lobe infarct which could represent areas of petechial hemorrhage as seen on the recent MRI. Therefore, continued [address] follow-up is recommended to ensure stability. ACT 112: Negative or not required by law. Electronically signed by: Stefano Duff M.D. 07/06/2021 11:34 AM
[2021-07-06] MEDS ORDERED: STROKE PATIENT DISCHARGE STA (13:07)
--- NOTE | 2021-07-06 13:46 | Pharmacy Report ---
Pharmacist Stroke Counseling - Date of Service July 06, 2021 - Scope: Pharmacy has been consulted to provide medication discharge counseling for this patient admitted with ischemic stroke as per the Pharmacist Discharge Counseling for Stroke Patients Protocol. - Medications on Discharge: Home Medications Medication Instructions Recorded Confirmed fluticasone propionate 50 2 spray INTRANASAL DAILY 07/04/21 07/04/21 mcg/actuation nasal spray,suspension ibuprofen 200 mg tablet 200 mg PO Q6H PRN 07/04/21 07/04/21 ljagaxra-fsg-ipqys acid 300 1 tab PO DAILY 07/04/21 07/04/21 mcg-lycopene 600 mcg-lutein 300 mcg tablet (Centrum Silver Men) New Rx's Medication Instructions Recorded rosuvastatin 10 mg tablet (Crestor) 10 mg PO DAILY #90 tab 04/05/21 aspirin 81 mg tablet,delayed 81 mg PO QAM #90 tab 07/06/21 release - Action: The above medications, specifically ones for stroke treatment/prophylaxis, have been reviewed in detail with the patient prior to discharge. This includes indication, common adverse reactions, drug interactions, and medication administration. Medication counseling has been employed using the teach-back method to ensure understanding. - Outcome: The patient have demonstrated understanding of the medications. Additional comments: - Counseling was provided via telephone secondary to COVID-19 pandemic - Patient was given an ample amount of time to have any questions/concerns addressed - Recommended switching ibuprofen to tylenol to prevent increased bleeding risk with concomitant aspirin use Thank you for allowing pharmacy to be involved in the care of this patient. Please call [phone] with any additional questions
--- NOTE | 2021-07-06 18:56 | Discharge Summary ---
Date of Service July 06, 2021 Admission HPI Per Admitting Provider 55 YOM with past medical history of: HLD, tubular adenoma. Patient comes to the EMD today for evaluation of partial vision loss. The patient awoke this morning at ~ 0700 feeling normal, around 0900 the patient went to log on his computer for his ; this is when he noticed that his vision was off and couldn't see some of the keys on the left side, this was also noticed with a headache behind his right eye. He thought that this might have possibly been a migraine so he laid down for a bit. 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 After not having any improvement or worsening of his visual field cut he went to see his eye doctor, where he had his eyes dilated and confrontational testing performed. It was noted that he was having left hemianopsia and was referred to the EMD. In the EMD the patient did have an acute stroke work up to include head and neck CTA and head CT. His CTA of the head revealed an acute infarct within the right RECORDING STUDIO INTERN territory and his CT scan of his head revealed a 6.4x3.6 cm hypodense focus within the right occipital lobe. EMD did telestroke with [facility] that had no further recommendations or treatments. Patient did receive aspirin. Hospitalist team was notified for consult. Patient remains with left hemianopsia on the temporal side, will admit for continued monitoring of neurological status and further evaluations of risk and origin of CVA. Patient is active with activity playing racquetball and hiking, he completed a 5 mile walk yesterday without any symptoms or problems. Follows regularly with his PCP and colonoscopy is up to date. Was started on statin therapy in 2019. he was to have a follow up with his PCP this week. Patient received his COVID vaccine Principal Diagnosis Posterior circulation ischemic stroke with small petechial hemorrhage Homonymous hemianopsia resolving Discharge Exam The patient appeared well Vital signs as documented. Extremities are nonedematous Neurologic exam is alert and oriented, no focal loss of strength visual acuity is improved Skin is without bruises or rashes Psychologically is without concerns for anxiety or depression. Discharge Data Allergies Allergy/AdvReac Type Severity Reaction Status Date / Time No Known Allergies Allergy Verified 07/04/21 19:56 Consultations 07/04/21 20:28 ED Decision to Admit Stat 07/05/21 00:23 Consult Neurology Routine 07/06/21 13:07 Consult Health Information Management Routine 07/06/21 14:10 Burn CD for patient Routine Ordered Studies 07/04/21 18:59 CT angio head w con Stat CT angio neck with con Stat CT head/brain wo con Stat 07/05/21 06:27 MR brain wo con Routine 07/06/21 07:00 CT head/brain wo con Routine Hospital Course (1) Acute CVA (cerebrovascular accident): Acute right RECORDING STUDIO INTERN stroke- no history of trauma, no dissection seen on CTA 6.4 x 3.6 cm hypodense focus with loss of villa-white differentiation within the right occipital lobe consistent with an acute right RECORDING STUDIO INTERN territory infarct. No significant mass effect. No hemorrhage - ECHO does confirm PFO, patient referred to cardiology for outpatient arrhythmia interrogation and consideration of discussions if PFO should be closed - Neurology consult, Acute right posterior cerebral artery stroke presenting with a left homonymous hemianopsia which appears to be significantly improved recommends reimaging per radiology and continue antiplatelet therapy with cardiology follow-up including event monitor -Continue current dose of Crestor - Continue ASA 81 mg daily, - -Repeat CT scan of head does not show any changes but this still suggest minor petechial changes in the stroke itself. I did discuss with the patient the recommendations are for repeat CT scan of head in 24 hours patient does not wish to remain in the hospital for this. He does understand he is taking some risk by going home but will return immediately if he has any symptoms. We did discuss symptoms would likely include headache or augmentation of his previous neurological symptoms or any other changes that he has concerned about he should report immediately back to the emergency department. Patient was given a prescription for an outpatient CT scan of his head without contrast - MRI brain 07/05/2021 acute right RECORDING STUDIO INTERN infarct with suspected small areas of petechial hemorrhage in the right occipital lobe infarct -CT scan brain 07/06/2021 there are several small foci of increased density within the right upper lobe infarct which could represent areas of petechial hemorrhages seen on the recent MRI. Therefore repeat CT is recommended to ensure stability (2) Hyperlipidemia: As per HPI and above total cholesterol 143 LDL is 80 HDL is 43 triglycerides are 102 - continue rosuvastatin (3) Tubular adenoma: Colonoscopy up to date (4) Patent foramen ovale: Patient will have outpatient cardiology follow-up to consider arrhythmia testing either by external monitor or loop recorder also comments on whether aspirin is appropriate versus consideration of closure of PFO Total Time Total Time Spent Total Time Spent (In Minutes): It required greater than 30 minutes to prepare this patient for discharge Discharge Plan Discharge Items Patient Disposition: Home - Self-Care Reason For Visit: VISION CHANGE, RECORDING STUDIO INTERN CVA Discharge Diagnosis: posterior circulation stroke patent foramen ovale Activity: Per Instructions section Activity Comment: gradually increase activity Non-emergency contact: Primary Care Provider and Neurologist Call non-emergency contact if: you have any medication questions Follow-up/Referrals: Dionicio Pizano MD [Primary Care Provider] - 07/13/21 10:15 am Scott Tirado Jr, MD, [facility] [Physician] - 07/13/21 1:00 pm Diet: Regular Addtl Attending Provider Instructions: foramen ovale is a small hole located in the wall between the two upper chambers of the heart. The foremen ovale usually closes after a baby is born. A patent foramen ovale (PFO) means the foramen ovale did not close properly at , so there is still an opening in the septum. In most cases, the PFO does not stay open at all times. Instead, its more like a flap that opens when there is higher pressure than normal in the chambers on the right side of the heart. Situations that can cause greater pressure include straining during bowel movements, coughing and sneezing. When the pressure gets high enough, blood may move from the right atrium to the left atrium. The condition affects about 25% of Americans, but many do not know they have the condition Patent Foramen Ovale increases the risk of transient ischemic attack (TIA), stroke and heart attack. This is because when pressure increases in the chambers on the right side of the heart, it is possible for a blood clot or solid particles in the blood to move from the right side of the heart to the left through the open PFO, and travel to the brain (which causes a TIA or stroke) or a coronary artery (which causes a heart attack). A TIA is caused by a temporary lack of blood flow to the brain. The symptoms are the same as a stroke, but last less than 24 hours Please report for head CT scan on 07/07/21, there should be a time supplied on this document Risk Factors for Stroke: You can reduce your chances of stroke by working with your medical provider to adopt a healthy lifestyle. Some specific ways to lower your chance of stroke are: * If you are a smoker, now is the time to stop smoking cigarettes * If you are diabetic, improve the control of your blood sugars * Avoid excessive amounts of alcohol * Control high blood pressure * Lose weight if you are overweight * Be sure to lead an active lifestyle * Eat a healthy diet low in salt, cholesterol and fat You should know about other risk factors for stroke that you are unable to control. These include: * Age 55 years or older * Male gender * Certain racial groups: , or / * Family History of Stroke, Mini stroke or Heart Attack * Sickle Cell Disease Follow Up: It is important for you to keep your follow up appointments with your medical provider. Who to Call and When: Medical Emergencies: Call 911 immediately if you experience any of the followin g warning signs and symptoms of Stroke: * Sudden numbness or weakness of the face, arm or leg, especially on one side of the body * Sudden confusion, trouble speaking or understanding * Sudden trouble seeing in one or both eyes * Sudden trouble walking, dizziness, loss of balance or coordination * Sudden severe headache with no cause Do not delay calling 911 if you experience any warning signs or symptoms of a stroke. Delay in seeking medical attention may affect what treatments can be given to you. . Ct head of 07/06/21 Findings: The paranasal sinuses and mastoid air cells are clear. The calvarium and skull base are intact. The ventricles are normal in size. There is no mass or midline shift. A 6.4 cm hypodense area within the right occipital lobe consistent with the patient's known acute RECORDING STUDIO INTERN territory infarct. There is also a smaller infarct within the right posterior parietal lobe on image 17. This measures approximately 2.1 cm. There are subtle small foci of increased density within the right occipital lobe infarct which could represent areas of petechial hemorrhage as seen on the recent MRI. Therefore, continued [address] follow-up is recommended to ensure stability. Impression: There are subtle small foci of increased density within the right occipital lobe infarct which could represent areas of petechial hemorrhage as seen on the recent MRI. Therefore, continued [address] follow-up is recommended Pending Studies at Discharge: No Stand-Alone Forms: Medications to Prevent Stroke, My [facility], Smoking Cessation Medications and DC Order Prescriptions: New aspirin 81 mg Tablet,Delayed Release (Dr/Ec) 81 mg PO QAM Qty: 90 RF: 0 Continued rosuvastatin [Crestor] 10 mg tablet 10 mg PO DAILY Qty: 90 RF: 3 ibuprofen 200 mg Tablet 200 mg PO Q6H PRN (Reason: Pain) RF: 0 Centrum Silver Men 300-600-300 mcg Tablet 1 tab PO DAILY RF: 0 fluticasone propionate 50 mcg/actuation [place],Suspension 2 spray INTRANASAL DAILY RF: 0 Discharge Orders: Discharge Order (Routine); Ordered 07/06/21 Ordered By: John Ngo/Other Patient Handouts: Symptoms of Stroke, What Is Ischemic Stroke?, Discharge Instructions for Stroke, Healthy Lifestyle to Prevent ... Admission Data Admit Date/Time: 07/04/21 20:37 Attending Provider: John Noe Admit Provider: Yaneth Sales Primary Care Provider: Dionicio Pizano Other Providers: Yaneth Sales ; Eleazar Paredes Other Interventions: Discharge Summary Assessment (RN) Last Done: 07/06/21 13:17 Coding Level of Care Code D/C DAY MANAGEMENT >30 MINS Diagnoses Acute CVA (cerebrovascular accident) I63.9 Hyperlipidemia E78.5 Tubular adenoma D36.9 Patent foramen ovale Q21.1
--- NOTE | 2021-07-07 15:57 | Electrocardiogram Report ---
Test Reason : Blood Pressure : / mmHG Vent. Rate : 065 BPM Atrial Rate : 065 BPM P-R Int : 174 ms QRS Dur : 100 ms QT Int : 404 ms P-R-T Axes : 065 058 057 degrees QTc Int : 420 ms Normal sinus rhythm Normal ECG No previous ECGs available Confirmed by Alex Castillo ([id number]) on 07/07/2021 3:57:16 PM Referred By: REFERRED SELF Confirmed By:Alex Castillo
[2021-07-09 00:54] LABS: Anti Cardiolipin Ab IgG <2.0 GPL-U/mL; Anti Cardiolipin Ab IgM <2.0 MPL-U/mL; Anti-Thrombin III Activity 74 % normal (80-135); B2 Glycoprotein IgG <2.0 U/mL (<20.0); PTT LA Screen 36 sec (<=40); Protein S Functional(Activity) 92 % (70-150)
== END 2021-07-06 14:12 | disposition home or self-care (01) | DRG 65 ==
LOC: ED 18:26 → SUATTDRO 20:37 → 2N 20:37